=== PATIENT | male | born 1965 | race Caucasian/White ===

== ENCOUNTER 2019-03-25 13:36 | Emergency (ER) | payer SELFPAY ==
[~2019-03-25] VITALS: Ht 175.3 cm; Wt 118.2 kg
[2019-03-25 13:45] VITALS: TEMP 98.7
[2019-03-25 13:52] LABS: BASO # 0.1 (0.0-0.2); BASO % 1.2 % (0.0-2.0); EOS # 0.7 (0.0-0.7); EOS % 7.9 % (0-4.0); GRAN # 4.5 (1.4-6.5); GRAN % 52.2 % (42.2-75.2); HEMOGLOBIN 13.9 g/dl (13.5-18.0); LYMPH # 2.5 (1.2-3.4); LYMPH % 29.1 % (20.0-51.0); MEAN CELL VOLUME 76 fl (80.0-100.0); MEAN CORPUSCULAR HEMOGLOBIN 24 pg (27.0-31.0); MEAN CORPUSCULAR HGB CONC 32 g/dl (33.0-37.0); MEAN PLATELET VOLUME 9.9 fl (7.4-10.4); MONO # 0.8 (0.1-0.6); MONO % 9.1 % (1.7-9.3); PLATELET COUNT 185 K/mm3 (130-400); RED BLOOD COUNT 5.69 M/mm3 (4.20-5.60)
[2019-03-25 13:59] LABS: PARTIAL THROMBOPLASTIN TIME 31.3 SECONDS (26.0-37.0)
[2019-03-25 14:02] LABS: ALANINE AMINOTRANSFERASE 39 U/L (21-72); ALBUMIN 4.3 gm/dL (3.5-5.0); ALKALINE PHOSPHATASE 64 U/L (50-136); ANION GAP 10 mmol/L (7-16); AST,SGOT 49 U/L (15-37); BILIRUBIN,TOTAL 0.6 mg/dL (0.0-1.0); BLOOD UREA NITROGEN 19 mg/dL (9-20); CALCIUM 9.1 mg/dL (8.4-10.2); CARBON DIOXIDE 20 mmol/L (22-30); CHLORIDE 109 mmol/L (98-107); CREATININE, serum 0.82 (0.66-1.25); GLUCOSE 125 mg/dL (74-106); POTASSIUM 4.3 mmol/L (3.4-5.0); SODIUM 139 mmol/L (137-145); TOTAL PROTEIN 7.9 gm/dL (6.4-8.2)
[2019-03-25 14:13] LABS: TROPONIN-I < 0.012 ng/mL (0.000-0.035)
[2019-03-25] MEDS ORDERED: PRINIVIL40 MG PO (17:36)
[2019-03-25] MEDS ORDERED: PROZAC40 MG PO (17:37)
[2019-03-25] MEDS ORDERED: VALIUM 10MG10 MG/TAB PO (17:37)
[2019-03-25] MEDS ORDERED: PLAVIX 75MG TAB75 MG PO (17:38)
[2019-03-25] MEDS ORDERED: NITROSTAT0.4 MG/TAB SL (17:39)
[2019-03-25] MEDS ORDERED: NOVOLIN 70/30 710 ML SQ (17:40)
[2019-03-25 18:25] VITALS: BP 139/84; PULSE 68
== END 2019-03-25 18:26 | disposition home or self-care (01) ==
LOC: COL.ER 13:36
PROVIDERS: Family Medicine
DX: R09.1 Pleurisy (principal); E11.9 Type 2 diabetes mellitus without complications; E78.5 Hyperlipidemia, unspecified; Z79.4 Long term (current) use of insulin; Z79.02 Long term (current) use of antithrombotics/antiplatelets
CPT/HCPCS: J1885; J3010; Q9967

== ENCOUNTER 2019-05-27 14:26 | Emergency (ER) | payer MEDICAID ==
[~2019-05-27] VITALS: Ht 175.3 cm; Wt 113.6 kg
[~2019-05-27 14:26] MED LIST: NITROSTAT0.4 MG/TAB SL; NOVOLIN 70/30 710 ML SQ; PLAVIX 75MG TAB75 MG PO; PRINIVIL40 MG PO; PROZAC40 MG PO; VALIUM 10MG10 MG/TAB PO
[2019-05-27 14:32] VITALS: TEMP 98
[2019-05-27] MEDS ORDERED: NORCO 325 MG-51 TAB PO (15:32)
[2019-05-27 15:50] VITALS: BP 138/88; PULSE 83
== END 2019-05-27 15:50 | disposition home or self-care (01) ==
LOC: COL.ER 14:26
DX: S62.632A Displaced fracture of distal phalanx of right middle finger, initial encounter for closed fracture (principal); E11.9 Type 2 diabetes mellitus without complications; I10 Essential (primary) hypertension; F17.210 Nicotine dependence, cigarettes, uncomplicated; Z79.4 Long term (current) use of insulin; Z79.02 Long term (current) use of antithrombotics/antiplatelets; W19.XXXA Unspecified fall, initial encounter; W23.0XXA Caught, crushed, jammed, or pinched between moving objects, initial encounter; Y92.009 Unspecified place in unspecified non-institutional (private) residence as the place of occurrence of the external cause
CPT/HCPCS: Q4021

== ENCOUNTER 2021-01-10 08:53 | Day surgery (SDC) | payer MEDICAID ==
[2021-01-10] VITALS (9 sets, daily range): BP systolic 123–145; BP diastolic 79–96; PULSE 59–66; TEMP 97.3
[~2021-01-10] VITALS: Ht 175.3 cm; Wt 109.4 kg
[~2021-01-10 08:53] MED LIST changes: +NORCO 325 MG-51 TAB PO
[2021-01-10 09:32] LABS: HEMATOCRIT 51.3 % (42.0-52.0); HEMOGLOBIN 17.9 g/dl (13.5-18.0); MEAN CELL VOLUME 83 fl (80.0-100.0); MEAN CORPUSCULAR HEMOGLOBIN 29 pg (27.0-31.0); MEAN CORPUSCULAR HGB CONC 35 g/dl (33.0-37.0); MEAN PLATELET VOLUME 10.5 fl (7.4-10.4); PLATELET COUNT 163 K/mm3 (130-400); RED BLOOD COUNT 6.18 M/mm3 (4.20-5.60); REDCELL DISTRIBUTION WIDTH-CV 14.1 % (11.5-14.5)
[2021-01-10] MEDS ORDERED: ULTRAM 50MG TAB50 MG PO (09:33)
[2021-01-10] MEDS ORDERED: BIDIL 37.5 MG-21 TAB PO (09:33)
[2021-01-10] MEDS ORDERED: BUSPAR5 MG PO (09:34)
[2021-01-10] MEDS ORDERED: ELAVIL150 MG PO (09:34)
[2021-01-10] MEDS ORDERED: TOPAMAX 25MG25 M1 PO (09:35)
[2021-01-10] MEDS ORDERED: ASPIRIN E.C. 8181 MG PO (09:35)
[2021-01-10] MEDS ORDERED: NOVOLIN R100 U/ML SQ (09:37)
[2021-01-10] MEDS ORDERED: PROAIR HFA0.09 MG/AC IH (09:38)
[2021-01-10] MEDS ORDERED: BENADRYL50 MG PO (09:38)
[2021-01-10] MEDS ORDERED: ROXICODONE 55 MG/TAB PO (09:39)
[2021-01-10 09:40] LABS: INR 1.1 (0.8-3.0); PROTHROMBIN TIME 12.3 SECONDS (9.7-12.8)
[2021-01-10 09:42] LABS: CALCIUM 9.2 mg/dL (8.4-10.2); CREATININE, serum 0.65 (0.66-1.25); POTASSIUM 3.9 mmol/L (3.4-5.0)
[2021-01-10 09:43] LABS: PARTIAL THROMBOPLASTIN TIME 32.2 SECONDS (26.0-37.0)
--- NOTE | 2021-01-10 14:50 | NUR ---
DC instructions reviewed with pt and [id number]. Both express understanding. Air was removed from TR band in 2ml increments with no bleeding or complications. Rt radial puncture site dressed with folded 2x2 gauze and dressing. Pt steady on feet to restroom. Has eated with no N/V or other complaint. INT DC'd with catheter intact. Pt assisted out to MIL's car by wheelchair with belongings.
== END 2021-01-10 14:50 | disposition home or self-care (01) ==
LOC: COL.CAR 08:53
PROVIDERS: Internal Medicine Cardiovascular Disease
DX: I25.10 Atherosclerotic heart disease of native coronary artery without angina pectoris (principal); I10 Essential (primary) hypertension; E11.9 Type 2 diabetes mellitus without complications; G47.33 Obstructive sleep apnea (adult) (pediatric); I25.2 Old myocardial infarction; Z79.82 Long term (current) use of aspirin; Z79.899 Other long term (current) drug therapy; Z79.891 Long term (current) use of opiate analgesic; Z85.05 Personal history of malignant neoplasm of liver; Z80.9 Family history of malignant neoplasm, unspecified
CPT/HCPCS: J1644; J2250; J3010; J7030; Q9967